=== PATIENT | female | born 1980 | race Caucasian/White ===

== ENCOUNTER 2024-08-23 15:26 | Emergency (ER) | payer MEDICARE, SELFPAY ==
--- NOTE | ~2024-08-23 | XR_ITS ---
CLINICAL HISTORY: congested cough 2 view chest x-ray. 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 Prominent bilateral pulmonary joe due to anatomic Ree orientation from straight back syndrome. No pleural fluid. Impression: Mild inferior lingula atelectasis. No consolidation. This document has been electronically signed by: Hipolito Sheets MD on 08/23/2024 16:44:20
[2024-08-23 15:46] VITALS: BP 112/59; PULSE 80; RESP 16; TEMP 37.1; O2SAT 98; BMI 44.3
--- NOTE | 2024-08-23 15:46 | ED.GENADULT ---
HPI - General Adult General Chief complaint: Upper Respiratory Symptoms Stated complaint: Trouble Breathing, Coughing, Loss of Sleep,Chest P Time Seen by Provider: 08/23/24 16:47 History of Present Illness ED Provider: Annemarie GARCIA narrative: The patient is a 44-year-old female with a history of asthma. She is visiting from [place], [place]. She is here with her mother. I believe she has a history of trisomy 21. Her mother does most of the talking. Apparently been having a cough with sputum and shortness of breath for about a week. The mother says the patient has bringing up yellow sputum. No definite fever. The patient has some chest discomfort. No abdominal pain. Sometimes the patient has had coughing fits with post tussive vomiting. The patient has a combined fluticasone salmeterol inhaler and also an albuterol rescue inhaler. The patient denies sore throat. The patient says that her symptoms feel similar to previous asthma exacerbations. She was last hospitalized for asthma 2 years ago. Related Data Previous Rx's ?Medication ?Instructions ?Recorded azithromycin 250 mg tablet 250 mg PO DAILY 4 days #4 tabs 08/23/24 prednisone 20 mg tablet 20 mg PO DAILY #12 tabs 08/23/24 Allergies Allergy/AdvReac Type Severity Reaction Status Date / Time No Known Allergies Allergy Verified 08/23/24 15:53 Review of Systems Review of Systems: Yes all other systems are reviewed and are negative [facility] Social History Social History Smoked in Last 30 Days: No Advance Directives: No Advance Directives Information Provided: Yes Physical Exam ED Vital Signs: Vital Signs - 24 hr 08/23/24 15:46 08/23/24 16:28 08/23/24 17:36 Temperature 98.8 F 98.5 F Pulse Rate 80 78 80 Respiratory Rate 16 17 16 Blood Pressure 112/59 L 100/30 L Pulse Oximetry 98 96 Oxygen Delivery Method Room Air Room Air 08/23/24 17:37 08/23/24 18:16 08/23/24 19:35 Temperature 98.5 F 98.5 F Pulse Rate 76 77 77 Respiratory Rate 22 H 16 16 Blood Pressure 106/51 L 101/35 L 101/35 L Pulse Oximetry 96 92 92 Oxygen Delivery Method Room Air Aerosol Mask Aerosol Mask BMI result Body Mass Index 44.3 Const Other: The patient is a 44-year-old female who looks somewhat chronically ill. She is pleasant and cooperative. She does not appear obviously acutely ill or in respiratory distress. HENMT Other: Face is symmetrical, mucous membranes moist, the posterior pharynx is normal. There is a remarkably good view of the posterior pharynx. The epiglottis is visible and appears normal. Eyes General: appearance normal, both eyes and all related structures Neck Neck: Yes normal visual inspection, Yes full ROM and Yes no lymphadenopathy Resp Other: No increased work of breathing. Mild wheezes bilaterally. Cardio Rate: regular rate Rhythm: regular rhythm Heart sounds: S1 normal heart sound present and S2 normal heart sound present GI Other: The abdomen is soft and nontender Skin Other: Skin is dry and unremarkable General skin exam: no rashes or lesions noted Neuro Other: The patient is awake and alert. She is pleasant and cooperative. Cranial nerves 2-12 are grossly intact. She moves her extremities normally and appropriately Extrem Other: No calf swelling or tenderness, no asymmetry, no edema of Course Course Course Narrative: This is a Rapid Medical Examination (RME) performed by Teresita Orozco PA-C in triage. Full HPI, ROS, assessment and treatment plan per primary provider in the Main ED. 08/23/24 1547 MARTHA Delaney Hx: 44 yo female here w/ mom for eval of cough productive of yellow sputum x1 week. hx asthma, using her inhaler more often w/o relief (albuterol and wixela). mom also ill with upper respiratory sx. PE/vitals: +no respiratory distress. No tripoding. Congested cough. Expiratory wheezes throughout. Plan: viral swabs, cxr Medications Administered Discontinued Medications Generic Name Dose Route Start Last Admin Trade Name Freq PRN Reason Stop Dose Admin Albuterol/Ipratropium 3 ml 08/23/24 17:32 08/23/24 17:35 Albuterol/Iprat 2.5/0.5mg 3 Ml Ampul.Neb INHALE 08/23/24 17:33 3 ml ONCE ONE Administration Azithromycin 500 mg 08/23/24 17:22 08/23/24 17:36 Azithromycin 500 Mg Tablet PO 08/23/24 17:23 500 mg ONCE ONE Administration Prednisone 60 mg 08/23/24 17:22 08/23/24 17:36 Prednisone 20 Mg Tablet PO 08/23/24 17:23 60 mg ONCE ONE Administration Medical Decision Making Medical Decision Making [facility] Narrative: the patient is a 44-year-old woman with obesity and asthma who is visiting from [place], [place] with her mother. The mother describes the patient having coughing with sputum production for the last week. She has been using her steroid/ cm all inhaler and also her albuterol. Here the patient does not look toxic. Her oxygen saturations are adequate. She has decreased air entry with some wheezing bilaterally. She does not seem in overt respiratory distress. She was treated with a DuoNeb updraft with improvement in her symptoms. She will be started on a short course of prednisone and azithromycin for what I suspect is an asthmatic bronchitis. Her chest x-ray was negative. She felt better and was comfortable being discharged. The mother was comfortable also. Lab Data Labs: Lab Results 08/23/24 Range/Units 15:59 Influenza Type A (PCR) NEGATIVE (Negative) Influenza Type B (PCR) NEGATIVE (Negative) RSV RNA Qual (PCR) NEGATIVE (Negative) SARS-CoV-2 RNA (RT-PCR) NEGATIVE (Negative) Discharge Plan Discharge Clinical Impression: Acute asthmatic bronchitis Patient Disposition: Home, Self-Care Instructions: Asthma (ED) Additional Instructions: I have sent a prescription [facility] to [facility]. Next dose tomorrow. Please take this medication as prescribed. I have also sent a prescription for the antibiotic azithromycin. Next dose tomorrow. Please take this medication once a day as prescribed as well. Continue to use your inhalers. Please plan on following up with your regular doctor when you return home. Return to the emergency room if significantly worse. Prescriptions: New azithromycin 250 mg tablet 250 mg PO DAILY 4 Days Qty: 4 0RF Rx Instructions: start on day 2 of therapy prednisone 20 mg tablet 20 mg PO DAILY Qty: 12 0RF Rx Instructions: Take 3 tablets by mouth daily for 2 days then take 2 tablets by mouth daily for 3 days. Interventions: ED Discharge Assessment Last Done: 08/23/24 19:35 Discharge Date/Time: 08/23/24 19:35 Print Language: Canadian
[2024-08-23 16:28] VITALS: BP 100/30; PULSE 78; RESP 17; TEMP 36.9; O2SAT 96
[2024-08-23 16:41] LABS: Influenza A PCR NEGATIVE (Negative); Influenza B PCR NEGATIVE (Negative); Resp Syncy Virus RNA Qual PCR NEGATIVE (Negative); SARS COV2 PCR INHOUSE NEGATIVE (Negative)
--- OUTSIDE RECORDS SUMMARY | 2024-08-23 16:46 | XMS_ITS | Encounter Summary ---
Author Organization [facility] Address [address] [place] [address] Care Team Providers Care Human Resources Talent Manager Name Role Phone Thomas Dixon MD Primary Care Provider [phone] Tangela Zaman PA-C Unavailable [facility] Unavailable Unavailabl e Reason for Visit * Reason Onset Date Comments Chest Pain 09/10/2015 left breast and chest pain Encounter Details Date Type Department Care Team (Late st Contact Info) Description 09/10/2015 Nurse Triage [facility] [address] [place] [phone] Thomas Dixon MD [address] [place] [phone] Social History Tobacco Use Types Packs/Day Years Used Date Smoking Tobacco: Never Smokeless Tobacco: Never Alcohol Use Standard Drinks/Week Comments No 0 (1 standard drink = 0.6 oz pur e alcohol) Comments Unknown Sex and Gender Information Value Date Recorded Sex Assigned at Not on file Legal Sex Female 5:11 AM EST Gender Identity Not on file Sexual Orientation Not on file documented as of this encounter Miscellaneous Notes * Telephone Encounter - Sanam Negrete RN - 09/10/2015 10:51 AM EDT Protocol: CHEST PAIN-A-OH Negative: SEVERE difficulty breathing (e.g., struggling for each breath, speaks in single words) Negative: Passed out (i.e., fainted, collapsed and was not responding) Negative: Chest pain lasting longer than 5 minutes and ANY of the following:* Over 50 years old* Over 30 years old and at least one cardiac risk factor (i.e., high blood pressure, diabetes, high cholesterol, obesity, smoker or strong family history of heart disease)* Pain is crushing, pressure-like, or heavy * Took nitroglycerin and chest pain was not relieved* History of heart disease (i.e., angina, heart attack, bypass surgery, angioplasty, CHF) Negative: Visible sweat on face or sweat dripping down face Negative: Sounds like a life-threatening emergency to the triager Negative: Followed an injury to chest Negative: SEVERE chest pain Negative: Difficulty breathing Negative: Pain also present in shoulder(s) or arm(s) or jaw Negative: Cocaine use within last 3 days Negative: History of prior 'blood clot' in leg or lungs (i.e., deep vein thrombosis, pulmonary embolism) Negative: Recent illness requiring prolonged bed rest (i.e., immobilization) Negative: Hip or leg fracture in past 2 months (e.g, or had cast on leg or ankle) Negative: Major surgery in the past month Negative: Recent long-distance travel with prolonged time in car, bus, plane, or train (i.e., within past 2 weeks; 6 or more hours duration) Negative: Heart beating irregularly or very rapidly Negative: Chest pain lasting longer than 5 minutes Negative: Intermittent chest pain and pain has been increasing in severity or frequency Negative: Dizziness or lightheadedness Negative: Coughing up blood Negative: Patient sounds very sick or weak to the triager Negative: Fever > 100.5 F (38.1 C) Affirmative: Intermittent chest pains persist > 3 days Disposition of See Today in Office suggested. patient mother states patient has been c/o of pain in her left breast, patient mother noticed left breast veins are more visible. Patient mother states patient unable to verbalize/describe pain effectively due to patient have cognitive deficit. Cleaner Wall educate mother of symptoms it may suggest pain related to cardiac. Patient mother understood. Mother schedule appointment today with CHRISTINA Megan Negrete RPA. * Telephone Encounter - Edith Benavidez - 09/10/2015 10:20 AM EDT Vietnamese Speaking ONLY Brooke (patient's mom) states that patient was complaining about chest and left breast pain. Brooke states that patient had heart surgery at 9 months old, and is concerned. Brooke scheduled an appointment for today with Megan Ludwig at 3/40 pm but would like to speak to the Nurse. Patient is going on day #2 with these severe pains and needs advisement. Please assist. documented in this encounter Plan of Treatment Not on file documented as of this encounter Visit Diagnoses Not on filedocumented in this encounter Additional Health Concerns Infection Onset Date Last Indicated Resolved Time COVID-19 Lab Pend 04/25/2020 04/25/2020 04/26/2020 1:28 AM EST COVID-19 Comment:Internal Result: See Chart Review 04/26/2020 04/26/2020 06/10/2020 7:[address] COVID-19 Lab Pend 06/28/2020 06/28/2020 06/29/2020 12:21 PM EST COVID-19 Lab Pend 09/12/2020 09/12/2020 09/13/2020 4:02 PM EDT COVID-19 Lab Pend 01/14/2021 01/14/2021 01/15/2021 1:32 PM EDT documented as of this encounter Care Teams Human Resources Talent Manager Relationship Specialty Start Date End Date Thomas Dixon MD [address] [place] [phone] PCP - General 01/27/11 Tangela Zaman PA-C [address] [place] [address] PCP - OBGYN Physician Set Off Press Operator 12/12/17 Moe Villatoro [facility] PCP - OBGYN Continuity Team 12/12/17 documented as of this encounter
--- OUTSIDE RECORDS SUMMARY | 2024-08-23 16:46 | XMS_ITS | Clinical Summary ---
Author Organization [facility] Address [address] [place] [address] Care Team Providers Care Director Name Role Phone Thomas Dixon MD Primary Care Provider [phone] Tangela Zaman PA-C Unavailable [phone] Moe Villatoro Team [facility] Unavailable Unavailabl e Allergies No known active allergies Medications blood-glucose meter [facility] kitIndications:T ype 2 diabetes mellitus without complication, without long-term current use of insulin (CMS HCC Code) Use as instructed. Any covered brand. Dx E11.9 1 each 3 Active blood sugar diagnostic (GLUCOSE BLOOD) [facility] StrpIndications: Type 2 diabetes mellitus without complication, without long-term current use of insulin (CMS HCC Code) 1 strip by [facility].(Non-Drug; Combo Route) route daily as needed. 150 strip 3 3 Active lancets [facility] MiscIndications: Type 2 diabetes mellitus without complication, without long-term current use of insulin (CMS HCC Code) 1 Device by [facility].(Non-Drug; Combo Route) route daily as needed. 150 each 1 3 Active alcohol swabs Top PadMIndications: Type 2 diabetes mellitus without complication, without long-term current use of insulin (CMS HCC Code) Apply 1 Device topically daily as needed. 150 each 3 3 Active benzonatate 200 MG Oral capsuleIndicatio ns:Cough, unspecified type Take 1 capsule by mouth 3 (three) times daily as needed for Cough. 30 capsule 1 4 Active albuterol 90 mcg/actuation Inhl inhalerIndicatio ns:Asthma, unspecified asthma severity, unspecified whether complicated, unspecified whether persistent inhale 2 puffs by mouth every 4 hours if needed for wheezing 18 g 4 Active albuterol 2.5 mg /3 mL (0.083 %) Inhl nebulizer solutionIndicati ons:Moderate persistent asthma with acute exacerbation inhale contents of 1 vial ( 3 milliliters ) in nebulizer by mouth and INTO THE LUNGS every 4 hours if needed for wheezing 90 mL 2 4 Active diclofenac sodium (VOLTAREN ARTHRITIS PAIN) 1 % Top gelIndications:A cute pain of left knee Apply 1 g topically 4 (four) times daily. 100 g 4 Active fluticasone propionate 50 mcg/actuation Nasl nasal sprayIndications :Nasal congestion instill 1 spray into each nostril once daily 16 g 5 4 Active guaiFENesin 100 mg/5 mL Oral oral liquidIndication s:Acute cough Take 10 mLs by mouth every 4 (four) hours if needed for Cough. 180 mL 4 Active metFORMIN 500 MG Oral 24 hr tabletIndication s:type 2 diabetes mellitus Take 1 tablet by mouth daily with breakfast. Indications: type 2 diabetes mellitus 90 tablet 1 4 Active montelukast 10 mg Oral tabletIndication s:maintenance therapy for asthma Take 1 tablet by mouth at bedtime. Indications: controller medication for asthma 30 tablet 11 4 Active omeprazole 20 MG Oral capsuleIndicatio ns:Gastroesophag eal reflux disease without esophagitis take 1 capsule by mouth once daily 28 capsule 5 4 Active FLUTICASONE-SALM ETEROL 250-50 mcg/dose Inhl inhalerIndicatio ns:Moderate persistent asthma with acute exacerbation inhale 1 puff by mouth and INTO THE LUNGS twice a day 60 each 5 5 Active celecoxib 100 MG Oral capsuleIndicatio ns:Bilateral chronic knee pain Take 1 capsule by mouth daily. 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 03/03/2015 Obstructive sleep apnea 09/02/2008 Down's syndrome Asthma GERD (gastroesophageal reflux disease) Vitamin D deficiency Severe obesity (BMI >= 40) ([facility] HCC Code) Cardiomegaly VSD (ventricular septal defe ct) with physical closure at age 9 months Uncontrolled moderate persistent asthma Encounters Date Type Department Care Team Description 06/26/2024 Refill [facility]ly [facility] [address] [place] [address] Thomas Dixon MD Bilateral chronic knee pain 06/18/2024 Refill [facility] [address] [place] [address] Thomas Dixon MD Moderate persistent asthma with acute exacerbation from Last 3 Months Immunizations Immunization Administration Dates Next Due Influenza, Quad Pres Free 6 mo and older 04/08/2014 Influenza, Quad w/Pres (FLUZONE) 019,01/26/2018,01/29/2016,03/02,02/14/2013 Influenza, Trivalent 3yrs an d older w/Pres 02/22/2012 Pfizer Sars-CoV-2 Vaccinatio n (Purple Cap) (Adult/Adol.) 04/05/2021 Pneumococcal Conjugate 20 (PCV-20) 10/22/2021 Pneumococcal Polysaccharide (PPV23) 03/02/2015 SARS-COV-2 (COVID-19) VACCIN E, UNSPECIFIED 04/05/2021,09/02/2020,08/12/2020 TDAP 02/14/2019 Family History Medical History Relation Comments Asthma Mother Diabetes Mother Hypertension Mother Relation Status Comments Brother Mother Alive Sister Alive Social History Tobacco Use Types Packs/Day Years Used Date Smoking Tobacco: Never Passive Smoke Exposure: Never Smokeless Tobacco: Never Tobacco Cessation:Counseling Given: Not Answered Alcohol Use Standard Drinks/Week Comments No 0 (1 standard drink = 0.6 oz pur e alcohol) PHQ-2 Answer Date Recorded PHQ-2 Score 0 07/28/2023 Comments No Sex and Gender Information Value Date Recorded Sex Assigned at Not on file Legal Sex Female 5:11 AM EST Gender Identity Not on file Sexual Orientation Not on file Last Filed Vital Signs Vital Sign Reading Time Taken Comments Blood Pressure 104/58 03/24/2024 2:20 AM EST Pulse 82 03/24/2024 2:20 AM EST Temperature 37.4 ??C (99.3 ??F) 03/24/2024 2:20 AM ES T Respiratory Rate 20 03/24/2024 2:20 AM EST Oxygen Saturation 96% 03/24/2024 2:20 AM EST Inhaled Oxygen Concentration - - Weight 78 kg (172 lb) 03/23/2024 10:26 PM EST Height 129.5 cm (4' 3 ) 03/23/2024 10:26 PM EST Body Mass Index 46.49 03/23/2024 10:26 PM EST Plan of Treatment Health Maintenance Due Date Last Done Comments Diabetes: Dental Exam 1990 Diabetic Foot Exam 1998 Diabetic Retinopathy 2 Year Screening 1998 Hepatitis B Vaccines (1 of 3 - 19+ 3-dose series) 1999 Health Care Proxy Review 2001 HPV/Cotest 2010 Medicare Initial AWV [id number] 12/28/2017 COVID-19 Vaccine ( season) 2023 04/05/2021, 04/05/2021, 09/02/2020, Additional history exists INFLUENZA VACCINE (#1) 2024 9, 01/26/2018, 01/29/2016, Additional history exists Depression Screening (Once per Calendar Year) 2024 07/28/2023, 07/28/2023, 07/28/2023, Additional history exists Hemoglobin A1C 09/05/2024 03/08/2024, 05/0 05/2023, 03/08/2023 Lipid Disorder Screening 09/10/2024 024, 08/10/2017, 07/25/2016, Additional history exists Kidney Health - Urine Microalbumin 12/28/2024 12/29/2023, 04/04/2023 Kidney Health - eGFR 03/23/2025 03/23/2024, 03/23/2024, 03/08/2024, Additional history exists Breast Cancer Screening 05/04/2025 05/04/19, 05/04/2023, 04/11/2022, Additional history exists Pap Smear 10/29/2026 10/30/2023 DTap / Tdap / Td Vaccines (2 - Td or Tdap) 02/14/2029 02/14/2019 Zoster Vaccines (1 of 2) 2030 Pneumococcal 0-49 Completed 10/22/2021, 03/02/2015 Cervical Cancer Screening Discontinued HIB Vaccines Aged Out No longer eligi ble based on patient's age to complete this topic HPV Vaccine Aged Out No longer eligi ble based on patient's age to complete this topic Hepatitis A Vaccine Aged Out No longe r eligible based on patient's age to complete this topic IPV Vaccines Aged Out No longer eligi ble based on patient's age to complete this topic Meningococcal ACWY Vaccines Aged Out No longer eligible based on patient's age to complete this topic Meningococcal B Vaccines Aged Out No longer eligible based on patient's age to complete this topic RRH RSV Vaccine Infants Aged Out No l onger eligible based on patient's age to complete this topic Rotavirus Vaccines Aged Out No longer eligible based on patient's age to complete this topic Goals Goal Patient Goal Type Associated Problems Recent Progress Patient-Stated? Author Inpatient Post-Discharge Follow Up General No Marlen Bello, RN Note: If you are hospitalized in the future, please complete a follow-up visit with your PCP within 7 days of discharge from the hospital. Post Discharge Follow Up - Asthma Patient General No Rena Solorio LPN Note: For your ASTHMA care, we mutually agreed on the plan and goals as listed below today: ? ? No asthma symptoms during the day or night ? ? No limits in activities or play ? ? No missed school or work ? ? Fewer attacks or flares ? ? No emergency room or hospital visits for asthma Decreased need for quick relief medicine Please use your medications as they are prescribed which is daily for the preventative inhalers or as needed for the rescue inhalers. Please call your provider if you have increased shortness of breath, cough, wheezing, or a producing more sputum, especially if it is colored. Our goal is to prevent you from being admitted to the hospital or going to the emergency department due to increased breathing difficulties. If you do require a visit to a hospital, please make a follow up appointment with your primary care provider within a few days of returning home. Weight Reduction Weight No Thomas Dixon MD Procedures Procedure Name Priority Date/Time Associated Diagnosis Comments COMPREHENSIVE METABOLIC PANEL STAT 03/23/2024 11:56 PM EST HEMOGLOBIN A1C Routine 03/08/2024 8:04 AM EST Type 2 diabetes mellitus without complication, without long-term current use of insulin ([facility] HCC Code) HC CREATININE; OTHER SOURCE Routine 12/29/2023 4:10 PM EDT Type 2 diabetes mellitus without complication, without long-term current use of insulin CERVICAL PAP SMEAR, LIQUID BASED SCRN (EXTERNAL) Routine 10/30/2023 11:53 AM EDT HC LIPID PROFILE Routine 09/11/2023 8:12 AM EDT Type 2 diabetes mellitus without complication, without long-term current use of insulin Hyperlipidemia, unspecified hyperlipidemia type MAMMO SCREENING BILATERAL WITH TOMOSYNTHESIS EXTERNAL Routine 05/04/2023 11:30 AM EST from Last 3 Months or Most Recently Relevant to Health Maintenance Results * (ABNORMAL) CMP (03/23/2024 11:56 PM EST) SODIUM 139 135 - 145 mmol/L [facility] POTASSIUM Canceled 3.5 - 5.1 mmol/L [facility] Comment:Hemolyzed specimen. Please redraw CHLORIDE 106 98 - 108 mmol/L [facility] CO2 26 22 - 30 mEq/L [facility] ANION GAP 7 4 - 16 mmol/L [facility] BUN 11 8 - 20 mg/dL [facility] CREATININE 0.6 0.5 - 0.9 mg/dL [facility] GLUCOSE 153(H) 65 - 100 mg/dL [facility] CALCIUM 8.8 8.5 - 10.2 mg/dL [facility] TOTAL PROTEIN 7.2 5.7 - 8.2 g/dL [facility] ALBUMIN 4.0 3.2 - 4.8 g/dL [facility] GLOBULIN 3.2 2.4 - 4.3 g/dL [facility] BILI, TOTAL 0.2(L) 0.3 - 1.2 mg/dL [facility] AST Canceled 7 - 37 U/L [facility] Comment:Hemolyzed specimen. Please redraw ALT 17 10 - 49 U/L [facility] ALK PHOS 114 46 - 116 U/L [facility] Blood 03/23/2024 11:5 6 PM EST 03/24/2024 12:13 AM EST Narrative [facility] - 03/24/2024 12:55 AM EST Release to patient->Immediate Unit Collect Source->Nasopharyngeal Is this test for diagnosis or screening?->Diagnosis of ill patient Reason for COVID-19 test->Resident of [facility] (Segura index case) Unit Collect Source->Nasopharyngeal Unit Collect us Mely Bingham MD LAB BLOOD ORDERABLES Final Res ult Performing Organization Address City/State/[facility] Co de Phone Number [facility] [address] [place] [address] * (ABNORMAL) Hemoglobin A1C (03/08/2024 8:04 AM EST) EAVERAGE GLUCOSE 146(H) 68 - 126 mg/dL [facility] HEMOGLOBIN A1C 6.7(H) 4.2 - 5.6 % [facility] Comment: Per ADA 2018 Guidelines, HbA1c values should be interpreted as follows: ?Normal: ? less than 5.7% ?Prediabetes: ??5.7% - 6.4% ?Diabetes: ? greater than 6.4% Samples containing >7% HbF may yield lower than expected HbA1c results. Additional testing not affected by HbF can be requested if clinically indicated. Contact [phone] for more information. Blood 03/08/2024 8:04 AM EST 03/08/2024 2:01 PM EST Narrative [facility] - 03/08/2024 3:46 PM EST Release to patient->Immediate Lab Collect us Surinder Wilson MD LAB BLOOD ORDERABLES Final Resul t Performing Organization Address City/[facility] de Phone Number [facility] AT [address] [address] * Microalbumin, Ur Random (12/29/2023 4:10 PM EDT) Pathologist Mitra MICROALBUMIN, UR 0.4 mg/dL [facility] CREAT, UR 176.5 mg/dL [facility] MALB/CREAT RATIO 2.3 0.0 - 30.0 mg/g [facility] Urine 12/29/2023 4:10 PM EDT 12/29/2023 9:11 PM EDT Narrative [facility] - 12/29/2023 10:02 PM EDT Release to patient->Immediate Lab Collect us Surinder Wilson MD URINE ORDERABLES Final Result Performing Organization Address [facility] de Phone Number [facility] [address] [address] * CERVICAL PAP SMEAR, LIQUID BASED SCRN (EXTERNAL) (10/30/2023 11:53 AM EDT) Pathologist Mitra ALMANZA [id number] Clinical Data Source Name: CERVICAL PAP SMEAR, LIQUID BASED SCRN # of Monolayers: 1 # of Slides: 1 LMP: 06/30/2023 Diagnostic or Screen: Screening SPECIMEN ADEQUACY: Satisfactory for evaluation: Endocervical cells/transformation zone component not identified. GENERAL CATEGORIZATION: Negative for intraepithelial lesion or malignancy. By physician request this case has been sent for Human Papilloma Virus testing. This specimen has been analyzed with the aid of the ThinPrep Imaging System. ??Every slide is reviewed by a machine filler shredder and any detected potential cellular abnormality is interpreted by a pathologist. INTERPRETATION/RESUL TS: Fungal organisms morphologically consistent with Saniya species. ? RELATED LABORATORY RESULTS Test Name ? Collected D/T ? Result HPV TYPE 16 ? 10/30/2023 11:53 ?NEG HPV TYPE 18 ? 10/30/2023 11:53 ?NEG HPV OTHER HR ?10/30/2023 11:53 ?NEG Test Description: The sensitivity and specificity of this PCR assay for HPV16, HPV18 and 12 OTHER HIGH RISK HPV types (31, 33, 35, 39, 45, 51, 52, 56, 58, 59, 66, and 68) are undefined for non-cervical specimens. HPV testing was performed by [facility] - ??[address] [place] [address]. Note: Pap tests are processed, reviewed, and reported at [facility] - [facility], [address] [place] [address], [address] [place] [address]. Nut Feeder: ?Electronic Signature: JAMAL ALONSO, ALYCIA, CT ?MELY ULLOA M.S., CT, HTL, SHANNAN (ASCP) ? (ASCP) MELY ULLOA M.S., CT, HTL, SHANNAN (ASCP) ??Reported Date: ??11/14/2023 [facility] 10/30/2023 11:5 3 AM EDT 10/30/2023 7:40 PM EDT Narrative [facility] - 11/14/2023 11:30 AM EDT SOURCE: CTP us Carina Moreno MD PATHOLOGY/CYTOLOGY ORDERABLES Fi nal Result [facility] [address] [place] [address] * (ABNORMAL) Lipid Panel reflex to Direct LDL if trig>400 and <1201 (09/11/2023 8:12 AM EDT) CHOLESTEROL 154 0 - 199 mg/dL [facility] Comment: Low-risk levels (desirable): < 200 mg/dL Moderate-risk levels (borderline): 200 -239 mg/dL High-risk levels: > 239 mg/dL TRIGLYCERIDES 53 <150 mg/dL [facility] Comment: Normal: < 150 Borderline high: 150 -199 High: 200 -499 Very high: > 499 HDL CHOLESTEROL 53(L) 60 - 401 mg/dL [facility] Comment: Low (undesirable, high risk): < 40 mg/dL High (desirable, low risk): > 59 mg/dL non-HDL-C 101 0 - 129 mg/dL [facility] CHOL/HDL RATIO 2.9 [facility] Comment: CHOLESTEROL/HDL RATIO INTERPRETATION: ? MEN ?WOMEN ??1/2 Average Risk ? 3.4 ? 3.4 ??Average Risk ? 5.0 ? 4.4 ??2 Times Average Risk ? 9.6 ? 7.1 ??3 Times Average Risk ?23.4 ?11.0 LDL (calc) 90 0 - 99 mg/dL [facility] Blood 09/11/2023 8:12 AM EDT 09/11/2023 2:20 PM EDT Narrative [facility] - 09/11/2023 3:15 PM EDT Release to patient->Immediate Lab Collect us Thomas Montes MD LAB BLOOD ORDERABLES Marie lopez Result [facility] [address] [address] * Mammo screening bilateral w/zen EXTERNAL (05/04/2023 11:30 AM EST) Anatomical Region Laterality Modality Breast Bilateral Mammography 05/04/2023 11:3 0 AM EST Narrative 05/10/2023 2:23 PM EST RHIO RESULT ORDERED BY: ??Cruz Daugherty Exam Site: [facility] LOCATION: [facility] HISTORY: Patient is a 43 year old who presents for screening. ??The patient has no personal or family history of breast cancer. The patient reports their last clinical breast exam was within the last year. RISK: Based on information provided to us by the patient and using the Tyrer-Cuzick model, this patient's estimate 10-year risk for developing breast cancer is 1% and lifetime risk is 6.2%, which is considered average lifetime risk. IMAGES COMPARED: The present examination has been compared to a prior imaging study performed at [facility] on 04/11/2022. MAMMOGRAM TECHNIQUE: The following mammographic views were obtained: bilateral CC with tomosynthesis and MLO with tomosynthesis. MAMMOGRAM FINDINGS: The breasts are almost entirely fatty. No new or suspicious masses, calcifications, asymmetries or architectural distortion is seen. IMPRESSION: No mammographic evidence of malignancy is seen involving either breast. Routine follow-up mammogram in 1 year is recommended. BI-RADS Category 1: Negative I have personally reviewed the images and the Resident's/Fellow's interpretation and agree with or edited the findings. Imaging submits this DICOM format image data and final report to the [facility], an independent secure electronic health information exchange, on a reciprocally searchable basis (with patient authorization) for a minimum of 12 months after exam date. SUKH DAVIDSON Verified by: SUKH DAVIDSON Procedure Note Doctor, MD Deepa - 05/10/2023 JING RESULT ORDERED BY: Cruz Daugherty Exam Site: [facility] LOCATION: [facility] HISTORY: Patient is a 43 year old who presents for screening. The patient has nopersonal or family history of breast cancer. The patient reports their last clinical breast exam was within the lastyear. RISK: Based on information provided to us by the patient and using theTyrer-Cuzick model, this patient's estimate 10-year risk for developingbreast cancer is 1% and lifetime risk is 6.2%, which is considered averagelifetime risk. IMAGES COMPARED: The present examination has been compared to a prior imaging studyperformed at [facility] on 04/11/2022. MAMMOGRAM TECHNIQUE: The following mammographic views were obtained:bilateral CC with tomosynthesis and MLO with tomosynthesis. MAMMOGRAM FINDINGS: The breasts are almost entirely fatty. No new or suspicious masses, calcifications, asymmetries or architecturaldistortion is seen. IMPRESSION: No mammographic evidence of malignancy is seen involving either breast. Routine follow-up mammogram in 1 year is recommended. BI-RADS Category 1: Negative I have personally reviewed the images and the Resident's/Fellow'sinterpretation and agree with or edited the findings. Imaging submits this DICOM format image data and final report to [facility], an independent secure electronic health informationexchange, on a reciprocally searchable basis (with patient authorization)for a minimum of 12 months after exam date. SUKH DAVIDSON Verified by: SUKH DAVIDSON us Cruz Daugherty MD IMG EXTERNAL ORDERABLES Final Re sult from Last 3 Months or Most Recently Relevant to Health Maintenance Insurance MEDICAID [facility] DUAL COMPLETE [id number] [place] [address] DUAL COMPLETE MEDICAID DUAL COMPLETE MEDICAID Care Teams Director Relationship Specialty Start Date End Date Thomas Dixon MD [address] [place] [phone] PCP - General 01/27/11 Tangela Zaman PA-C [address] [place] [phone] PCP - OBGYN Physician Mixed Livestock Farmer 12/12/17 Moe Villatoro [facility] PCP - OBGYN Continuity Team 12/12/17
--- OUTSIDE RECORDS SUMMARY | 2024-08-23 16:46 | XMS_ITS | Encounter Summary ---
Author Organization [facility] Address [address] [place] [address] Care Team Providers Care Forestry Technical Officer Name Role Phone Thomas Dixon MD Primary Care Provider [phone] Tangela Zaman PA-C Unavailable [phone] [facility] Unavailable Unavailabl e Reason for Visit * Reason Onset Date Comments Medication Refill 01/23/2017 antibiotic nee ded for dental appointment on 01/25/2017 Encounter Details Date Type Department Care Team ([facility] st Contact Info) Description 01/23/2017 Refill [facility] [address] [place] [phone] Thomas Dixon MD [address] [place] [phone] Need for subacute bacterial endocarditis prophylaxis Social History Tobacco Use Types Packs/Day Years [...] encounter Miscellaneous Notes * Telephone Encounter - Khadijah Estevez (Korin) - 01/23/2017 4:40 PM EDT Patient have been notified of Doctor orders and all Questions answered * Telephone Encounter - Thomas Dixon MD - 01/23/2017 12:48 PM EDT Done (Rx'd amoxicillin) * Telephone Encounter - Khadijah Estevez (Korin) - 01/23/2017 10:56 AM EDT Please Review call info and advice. documented in this encounter Plan of Treatment Not on file documented as of this encounter Visit Diagnoses Diagnosis Need for subacute bacterial endocarditis prophylaxis Other specified prophylactic or treatment measure documented in this encounter Additional Health Concerns Infection [...] documented as of this encounter Care Teams Forestry Technical Officer Relationship Specialty Start Date End Date Thomas Dixon MD [address] [place] [address] PCP - General 01/27/11 Tangela Zaman PA-C [address] [place] [address] PCP - OBGYN Physician Geology Scientist 12/12/17 Moe Villatoro [facility] PCP - OBGYN Continuity Team 12/12/17 documented as of this encounter
--- OUTSIDE RECORDS SUMMARY | 2024-08-23 16:46 | XMS_ITS | Encounter Summary ---
Author Organization [facility] Address [address] [place] [address] Care Team Providers Care Field Marketing Manager Name Role Phone Thomas Dixon MD Primary Care Provider [phone] Tangela Zaman PA-C Unavailable [facility] Unavailable Unavailabl e Reason for Visit * Reason Comments Medication Refill Encounter Details Date Type Department Care Team (Late st Contact Info) Description 03/26/2022 Refill [facility] [address] [place] [address] Dao Granda MD Acute cough Social History Tobacco Use Types Packs/Day Years Used Date Smoking Tobacco: Never Smokeless Tobacco: Never Alcohol Use Standard Drinks/Week Comments No 0 (1 standard drink = 0.6 oz pur e alcohol) PHQ-2 Answer Date Recorded PHQ-2 Score 0 03/08/2022 Comments No Sex and Gender Information Value Date Recorded Sex Assigned at Not on file Legal Sex Female 5:11 AM EST Gender Identity Not on file Sexual Orientation Not on file COVID-19 Exposure Response Date Recorded In the last 10 days, have yo u been in contact with someone who was confirmed or suspected to have Coronavirus/COVID-19? No / Unsure 03/08/2022 1:14 PM EST documented as of this encounter Miscellaneous Notes * Telephone Encounter - Khadijah Estevez (Brigida), BRIGIDA - 03/28/2022 9:51 AM EST Last office visit was 03/08/22 Next follow up 04/13/22 documented in this encounter Plan of Treatment Not on file documented as of this encounter Goals Goal Patient Goal Type Associated Problems Recent Progress Patient-Stated? Author Weight Reduction Weight No Thomas Dixon MD documented as of this encounter Visit Diagnoses Diagnosis Acute cough documented in this encounter Care Teams Field Marketing Manager Relationship Specialty Start Date End Date Thomas Dixon MD [address] [place] [phone] PCP - General 01/27/11 Tangela Zaman PA-C [address] [place] [address] PCP - OBGYN Physician Firer Tunnel Kiln 12/12/17 Moe Villatoro Team [facility] PCP - OBGYN Continuity Team 12/12/17 documented as of this encounter
--- OUTSIDE RECORDS SUMMARY | 2024-08-23 16:46 | XMS_ITS | Encounter Summary ---
Author Organization [facility] Address [address] [place] [address] Care Team Providers Care Assembler Wet Wash Name Role Phone Thomas Dixon MD Primary Care Provider [phone] Tangela Zaman PA-C Unavailable Moe Villatoro Team [facility] Unavailable Unavailabl e Reason for Visit * Reason Onset Date Comments Medication Refill 07/29/2019 Encounter Details Date Type Department Care Team ([facility] st Contact Info) Description 07/29/2019 Refill [facility] Centralized Scheduling [address] [place] [address] Thomas Dixon MD [address] [place] [phone] Mild intermittent asthma without complication (Primary Dx) Social History Tobacco Use Types Packs/Day Years Used Date Smoking Tobacco: Never Smokeless Tobacco: Never Alcohol Use Standard Drinks/Week Comments No 0 (1 standard drink = 0.6 oz pur e alcohol) Comments No Sex and Gender Information Value Date Recorded Sex Assigned at Not on file Legal Sex Female 5:11 AM EST Gender Identity Not on file Sexual Orientation Not on file documented as of this encounter Miscellaneous Notes * Telephone Encounter - Marlen Bello RN - 07/29/2019 9:11 AM EDT Patient sister called through the triage line because her sister is needing that medication becauseshe has been with wheezing at nights. Please advice. Thank you * Telephone Encounter - Mar Ventura - 07/29/2019 9:02 AM EDT Call Information What is the primary reason you are calling today?: Other OTHER REASON FOR CALL: Patient sister states that the patient has been wheezing and is having trouble breathing at night documented in this encounter Plan of Treatment Not on file documented as of this encounter Goals Goal Patient Goal Type Associated Problems Recent Progress Patient-Stated? Author Weight Reduction Weight No Thomas Dixon MD documented as of this encounter Visit Diagnoses Diagnosis Mild intermittent asthma without complication- Primary Unspecified asthma documented in this encounter Additional Health Concerns [...] documented as of this encounter Care Teams Assembler Wet Wash Relationship Specialty Start Date End Date Thomas Dixon MD [address] [place] [address] PCP - General 01/27/11 Tangela Zaman PA-C [address] [place] [address] PCP - OBGYN Physician Vice President Medical Affairs 12/12/17 [place] PCP - OBGYN Continuity Team 12/12/17 documented as of this encounter
--- OUTSIDE RECORDS SUMMARY | 2024-08-23 16:46 | XMS_ITS | Encounter Summary ---
Author Organization [facility] Address [address] [place] [address] Care Team Providers Care Strategic Business Development Name Role Phone Thomas Dixon MD Primary Care Provider [phone] Tangela Zaman PA-C Unavailable [facility] Unavailable Unavailabl e Reason for Visit * Reason Comments Medication Refill Encounter Details Date Type Department Care Team ([facility] st Contact Info) Description 03/26/2022 Refill [facility] [address] [place] [phone] Thomas Dixon MD [address] [place] [phone] Asthma, unspecified asthma severity, unspecified whether complicated, unspecified whether persistent; Moderate persistent asthma with acute exacerbation Social History Tobacco Use Types Packs/Day Years [...] Notes * Telephone Encounter - Khadijah Estevez Lpn, LPN - 03/28/2022 9:51 AM EST Last office visit was 03/08/22 Next follow up 04/13/22 documented in this encounter Plan of Treatment Not on file documented as of this encounter Goals Goal Patient Goal Type Associated Problems Recent Progress Patient-Stated? Author Weight Reduction Weight No Thomas Dixon MD documented as of this encounter Visit Diagnoses Diagnosis Asthma, unspecified asthma severity, unspecified whether complicated, unspecified whether persistent Moderate persistent asthma with acute exacerbation documented in this encounter Care Teams Strategic Business Development Relationship Specialty Start Date End Date Thomas Dixon MD [address] [place] [phone] PCP - General 01/27/11 Tangela Zaman PA-C [address] [place] [address] PCP - OBGYN Physician Corporate Relations Manager 12/12/17 Moe Villatoro [facility] PCP - OBGYN Continuity Team 12/12/17 documented as of this encounter
--- OUTSIDE RECORDS SUMMARY | 2024-08-23 16:46 | XMS_ITS | Encounter Summary ---
Author Organization [facility] Address [address] [place] [address] Care Team Providers Care Certified Detention Deputy Name Role Phone Thomas Dixon MD Primary Care Provider [phone] Tangela Zaman PA-C Unavailable [facility] Unavailable Unavailabl e Encounter Details Date Type Department Care Team ([facility] st Contact Info) Description 01/10/2024 Documentation Only [facility] [address] [place] [phone] Thomas Dixon MD [address] [place] [phone] Social History Tobacco Use Types Packs/Day Years Used Date Smoking Tobacco: Never Passive Smoke Exposure: Never Smokeless Tobacco: Never Alcohol Use Standard [...] on file documented as of this encounter Plan of Treatment Not on file documented as of this encounter Goals Goal Patient Goal Type Associated Problems Recent Progress Patient-Stated? Author Inpatient Post-Discharge Follow Up General No Marlen Bello, RN Note: If you are hospitalized in the future, please complete a follow-up visit with your PCP within 7 days of discharge from the hospital. Weight Reduction Weight No Thomas Dixon MD documented as of this encounter Visit Diagnoses Not on filedocumented in this encounter Care Teams Certified Detention Deputy Relationship Specialty Start Date End Date Thomas Dixon MD [address] [place] [address] PCP - General 01/27/11 Tangela Zaman PA-C [address] [place] [address] PCP - OBGYN Physician Outbound Telemarketer 12/12/17 Moe Villatoro Team [facility] PCP - OBGYN Continuity Team 12/12/17 documented as of this encounter
--- OUTSIDE RECORDS SUMMARY | 2024-08-23 16:46 | XMS_ITS | Clinical Summary ---
Author Organization [facility] Address [address] [place] [address] Care Team Providers Care Fbi Investigator Name Role Phone Cruz Daugherty MD Primary Care Provider [phone] Source Comments If you require more information, please call our [facility] Department at [phone]. [facility] Allergies No known active allergies Medications albuterol (PROVENTIL,VENTOLIN ) 90 MCG/ACT inhaler INHALE 1-2 PUFFS EVERY 4-6 HOURS NEEDED AND DIRECTED. 0 7 Active ADVAIR HFA 230-21 MCG/ACT inhaler Inhale into the lungs. 12 0 0 Active ondansetron (ZOFRAN-ODT) 4 MG disintegrating tablet Take 1 tablet (4 mg total) by mouth 3 times daily as needed for Vomiting Place on top of tongue. 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/2006 Prediabetes Resolved Problems Problem Noted Date Diagnosed Date Resolved Date Pain On Swallowing 09/28/2006 6 Overview (08/01/2011): Created by Conversion Difficulty Swallowing (Dysphagia) 09/28/2006 03/02/2016 Overview (08/01/2011): Created by Conversion Family History Medical History Relation Comments Heart attack Father Breast cancer Neg Hx Colon cancer Neg Hx Diabetes Neg Hx Hypertension Neg Hx Ovarian cancer Neg Hx Thrombosis Neg Hx Relation Status Comments Father Social History Tobacco Use Types Packs/Day Years Used Date Smoking Tobacco: Never Smokeless Tobacco: Never Tobacco Cessation:Counseling Given: Not Answered Alcohol Use Standard Drinks/Week Comments No 0 (1 standard drink = 0.6 oz pur e alcohol) Hunger Vital Sign Answer Date Recorded Within the past 12 months, y ou worried that your food would run out before you got the money to buy more. Never true 09/01/19 23 Within the past 12 months, t he food you bought just didn't last and you didn't have money to get more. Never true 08/31/2022 PRAPARE - Transportation Answer Date Re corded In the past 12 months, has l ack of transportation kept you from medical appointments or from getting medications? No 06/2022 In the past 12 months, has l ack of transportation kept you from meetings, work, or from getting things needed for daily living? No 08/31/2022 Housing Stability Vital Sign Answer Mo e Recorded In the last 12 months, was t here a time when you were not able to pay the mortgage or rent on time? No 08/31/2022 Number of Places Lived in the Last Year Not on f ile 08/31/2022 In the last 12 months, was t here a time when you did not have a steady place to sleep or slept in a senior living (including now)? No 08/31/2022 Intimate Partner Violence Answer Date R ecorded Is anyone physically, emotio ruthy, or financially hurting you? Unable to ask at this time 10/30/2023 Alcohol Use Answer Date Recorded 1. How often do you have a d rink containing alcohol? 0: Never 10/30/2023 2. How many drinks containin g alcohol do you have on a typical day when you are drinking? 0: None, I do not drink 3. How often do you have six or more drinks on one occasion? 0: Never 10/30/2023 Depression Answer Date Recorded PHQ Total Score 0 10/30/2023 Comments No Sex and Gender Information Value Date Recorded Sex Assigned at Not on file Legal Sex Female 8:33 PM EST Gender Identity Not on file Sexual Orientation Not on file Last Filed Vital Signs Vital Sign Reading Time Taken Comments Blood Pressure 118/58 10/30/2023 8:45 AM EDT Pulse 60 10/30/2023 8:45 AM EDT Temperature 36.4 ??C (97.5 ??F) 09/21/2023 9:42 AM ED T Respiratory Rate 16 09/21/2023 9:42 AM EDT Oxygen Saturation 95% 09/21/2023 9:42 AM EDT Inhaled Oxygen Concentration - - Weight 78.2 kg (172 lb 4.8 oz) 10/30/2023 8:45 A M EDT Height 127 cm (4' 2 ) 10/30/2023 8:45 AM EDT Body Mass Index 48.46 10/30/2023 8:45 AM EDT Plan of Treatment Health Maintenance Due Date Last Done Comments HIV Screening [facility] 1993 Hepatitis C Screening [facility] 1998 IMM-Hepatitis B Vaccine (1 of 3 - 19+ 3-dose series) 1999 IMM Pneumo: Peds (0-5yrs) or At-Risk Patients (6-49yrs) (2 of 2 - PCV) 03/02/2016 03/02/2015 HPV >= 25 03/02/2021 03/02/2016 COVID-19 Vaccine (4 - 2023- season) 2023 04/05/2021, 09/02/2020, 08/12/2020 Depression Screen Yearly 10/29/2024 024, 09/08/2021 IMM-Influenza (Season Ended) 2024 Breast Cancer Screening [facility] 05/04/2025 05/04/2023, 04/11/2022 Cervical Cancer Screening (USPSTF/ACOG) 10/29/2026 Pap Smear >=21 10/29/2026 10/30/2023, 03/02/2016 IMM DTaP/Tdap/Td (2 - Td or Tdap) 02/14/2029 02/14/2019 IMM-HIB 0-5 Yrs or At-Risk Patients Aged Out No longer eligible b ased on patient's age to complete this topic IMM-HPV 9-26 Yrs or Shared Decision (27-45 Yrs) Aged Out No longer eligible based on patient's age to complete this topic IMM-MCV4 0-18 Yrs or At-Risk Patients Aged Out No longer eligible b ased on patient's age to complete this topic IMM-MenB (2 Plans: Shared decision & Increased Risk Plans) Aged Out No longer eligible b ased on patient's age to complete this topic IMM-Rotavirus 0-8 Months Aged Out No longer eligible based on patient's age to complete this topic Procedures Procedure Name Priority Date/Time Associated Diagnosis Comments HRIS ADMINISTRATOR CYTOLOGY Routine 10/30/2023 11:53 AM EDT Well woman exam with routine gynecological exam MAMMOGRAPHY JOSIAS ONLY SCREENING BILATERAL Routine 05/04/2023 11:30 AM EST Breast screening HPV DNA PROBE WITH CYTOLOGY Routine 03/02/2016 12:09 PM EDT from Last 3 Months or Most Recently Relevant to Health Maintenance Results * HRIS ADMINISTRATOR Cytology (10/30/2023 11:53 AM EDT) Pathologist [facility] HRIS ADMINISTRATOR Cytology [id number] Clinical Data Source Name: CERVICAL PAP SMEAR, LIQUID BASED SCRN # of Monolayers: 1 # of Slides: 1 LMP: 06/30/2023 Diagnostic or Screen: Screening SPECIMEN ADEQUACY: Satisfactory for evaluation: Endocervical cells/transformatio n zone component not identified. GENERAL CATEGORIZATION: Negative for intraepithelial lesion or malignancy. By physician request this case has been sent for Human Papilloma Virus testing. This specimen has been analyzed with the aid of the ThinPrep Imaging System. ??Every slide is reviewed by a farm machinery set up mechanic and any detected potential cellular abnormality is interpreted by a pathologist. INTERPRETATION/RESU LTS: Fungal organisms morphologically consistent with Saniya species. [...] non-cervical specimens. HPV testing was performed by [facility] - ??[address] [place] [address]. Note: Pap tests are processed, reviewed, and reported at [facility], [address] [place] [address], [place] [address]. Bullet Swaging Machine Adjuster: ?Electronic Signature: JAMAL ALONSO, ALYCIA, CT ?MELY ULLOA M.S., CT, HTL, MB (ASCP) ? (ASCP) MELY ULLOA M.S., CT, HTL, MB (ASCP) ??Reported Date: ??11/14/2023 [facility] CERVICAL SMEAR SPECIMEN / Unknown 10/30/2023 11:53 AM EDT 10/30/2023 7:40 PM EDT Comment:CERVICAL PAP SMEAR, LIQUID BASED SCRN Narrative [facility] - 11/14/2023 11:30 AM EDT Unless indicated otherwise in Component Results, testing was performed at: [facility], [address] [place] [address] us Carina Moreno MD PATHOLOGY/CYTOLOGY ORDERABLES F inal Result [facility] Refer to result narrative US * Mammography JOSIAS ONLY screening BILATERAL (05/04/2023 11:30 AM EST) Anatomical Region Laterality Modality Breast Bilateral Mammography 05/04/2023 11:3 0 AM EST Impressions 05/10/2023 2:23 PM EST No mammographic evidence of malignancy is seen involving either breast. Routine follow-up mammogram in 1 year is recommended. BI-RADS Category 1: Negative I have personally reviewed the images and the Resident's/Fellow's interpretation and agree with or edited the findings. Imaging submits this DICOM format image data and final report to the [facility], an independent secure electronic health information exchange, on a reciprocally searchable basis (with patient authorization) for a minimum of 12 months after exam date. Narrative 05/10/2023 2:23 PM EST LOCATION: [facility] HISTORY: Patient is a 43 year old who presents for screening. ??The patient has no personal or family history of breast cancer. The patient reports their last clinical breast exam was within the last year. RISK: Based on information provided to us by the patient and using the Noaher-Cuzick model, this patient's estimate 10-year risk for developing breast cancer is 1% and lifetime risk is 6.2%, which is considered average lifetime risk. IMAGES COMPARED: The present examination has been compared to a prior imaging study performed at [facility] on 04/11/2022. MAMMOGRAM TECHNIQUE: The following mammographic views were obtained: bilateral CC with tomosynthesis and MLO with tomosynthesis. MAMMOGRAM FINDINGS: The breasts are almost entirely fatty. No new or suspicious masses, calcifications, asymmetries or architectural distortion is seen. Procedure Note Osvaldo Richmond MD - 05/10/2023 LOCATION: [facility] HISTORY: Patient is a 43 year old who presents for screening. The patient has nopersonal or family history of breast cancer. The patient reports their last clinical breast exam was within the lastyear. RISK: Based on information provided to us by the patient and using theTyjomarr-Cuzick model, this patient's estimate 10-year risk for developingbreast cancer is 1% and lifetime risk is 6.2%, which is considered averagelifetime risk. IMAGES COMPARED: The present examination has been compared to a prior imaging [facility]performed at [facility] on 04[facility]11[facility]2022. MAMMOGRAM TECHNIQUE: The following mammographic [...] format image data and final report to [employer], an independent secure electronic health informationexchange, on a reciprocally searchable basis (with patient authorization)for a minimum of 12 months after exam date. Cruz Daugherty MD IMG MAMMOGRAPHY ORDERABLES Final Result * HPV DNA probe with cytology (03/02/2016 12:09 PM EDT) HPV Type 16 NEG [facility] HPV Type 18 NEG [facility] HPV Other High Risk NEG [facility] Comment: TEST INFORMATION: Human Papillomavirus (HPV) High Risk- other. A positive high-risk other HPV test result indicates that the patient may be infected with one or more of the following HPV genotypes: 31, 33, 35, 39, 45, 51, 52, 56, 58, 59, 66 and 68, which are associated with cervical cancer and its precursor lesions. Results should be correlated with cytologic/histologic findings. Test Method: ??PCR 03/02/2016 12:0 9 PM EDT 03/04/2016 11:01 AM EDT Delilah Williamson MD BODY FLUIDS AND STOOLS ORDERA BLES Final Result [address] [address], from Last 3 Months or Most Recently Relevant to Health Maintenance Insurance [place] [id number] [place] [address] DUAL COMPLETE [place] [facility] DUAL COMPLETE Advance Directives For more information, please contact: [phone] * Full Code (Latest Code Status on File) Date Activated Date Inactivated Comments 03/02/2016 1:40 PM 03/03/2016 6:10 AM Care Teams Fbi Investigator Relationship Specialty Start Date End Date Cruz Daugherty MD PCP - General 02/19/15
[2024-08-23] MEDS: Albuterol/Iprat 2.5/0.5MG 3 ML AMPUL.NEB INHALE (17:35)
[2024-08-23 17:36] VITALS: PULSE 80; RESP 16; O2SAT 96
[2024-08-23] MEDS: Azithromycin 500 MG TABLET PO (17:36)
[2024-08-23] MEDS: predniSONE 20 MG TABLET 60 MG PO (17:36)
[2024-08-23 17:37] VITALS: BP 106/51; PULSE 76; RESP 22; O2SAT 96
[2024-08-23 18:16] VITALS: BP 101/35; PULSE 77; RESP 16; TEMP 36.9; O2SAT 92
--- NOTE | 2024-08-23 18:33 | PC.NURSE ---
pt awaiting EMS transport home ETA 1929
[2024-08-23 19:35] VITALS: BP 101/35; PULSE 77; RESP 16; TEMP 36.9; O2SAT 92
== END 2024-08-23 19:35 | disposition home or self-care (01) ==
PROVIDERS: Physician Assistant Medical; Emergency Provider Emergency Medicine
DX: J45.909 Unspecified asthma, uncomplicated (principal); R06.02 Shortness of breath; Z03.818 Encounter for observation for suspected exposure to other biological agents ruled out
CPT/HCPCS: 0241U; 71046; 94640; 99284; 99285

== ENCOUNTER → 2024-08-23 15:50 | Outpatient (BNV) | payer MEDICARE, SELFPAY | PROVIDERS: Emergency Provider Emergency Medicine; Visit Provider Radiology Diagnostic Radiology | DX: R05.9 Cough, unspecified (principal) | CPT/HCPCS: 71046 ==